=== PATIENT | female | born 2000 | race Hispanic/Latino ===

== ENCOUNTER 2022-01-26 18:31 | Emergency (ER) | payer SELFPAY ==
[2022-01-26] MEDS ORDERED: ONDANSETRON 4 MG/2 ML VIAL ONE (19:14)
[2022-01-26] MEDS ORDERED: MORPHINE 4 MG/ML SYR ONE (19:14)
[2022-01-26] MEDS ORDERED: FAMOTIDINE 20 MG/2 ML VIAL IV ONE (19:14)
[2022-01-26 19:16] LABS: Absolute Lymphocytes (CBC) 1.8 K/uL (0.7-4.9); Hematocrit 39.3 % (36.0-45.0); Lymphocytes % 12.2 % (15.3-44.8); MCV 82.3 fL (80-100); MPV 9.2 fL (7.6-11.3); RBC Red Blood Cell Count 4.77 M/uL (3.86-4.86)
[2022-01-26 19:34] LABS: Albumin 3.4 g/dL (3.4-5.0); Bilirubin Total 0.5 mg/dL (0.2-1.0); Potassium 3.3 mmol/L (3.5-5.1); Protein, Total 7.9 g/dL (6.4-8.2); Troponin High Sensitivity 3.4 pg/mL (<58.9)
--- NOTE | 2022-01-27 00:34 | EDPHYS ---
Physician Documentation [facility] Name: Annalisa Gil Age: 21 yrs Sex: Female : 2000 Arrival Date: 01/26/2022 Time: 18:32 Bed 20 Private MD: ED Physician Adan Cordoba HPI: 01/26 18:57 This 21 yrs old Female presents to ER via Wheelchair with complaints of pm1 Abdominal pain. 18:57 The patient presents with abdominal pain in the epigastric area, in the right upper pm1 quadrant. Onset: The symptoms/episode began/occurred just prior to arrival. The symptoms do not radiate. Associated signs and symptoms: Pertinent positives: shortness of breath, Pertinent negatives: nausea, vomiting, and diarrhea, chest pain, dysuria, fever. The symptoms are described as sharp. Modifying factors: The symptoms are alleviated by nothing, the symptoms are aggravated by nothing. Severity of pain: in the emergency department the pain is unchanged. The patient has not experienced similar symptoms in the past. The patient has not recently seen a physician. Patient with vaginal delivery on 01/13/2022 without any complications. 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 - Social history:: Smoking status: Patient denies any tobacco usage or history of. ROS: 18:57 Constitutional: Negative for fever, chills, and weight loss, Cardiovascular: Negative pm1 for chest pain, palpitations, and edema. 18:57 Back: Negative for injury and pain, : Negative for injury, bleeding, discharge, and swelling, MS/Extremity: Negative for injury and deformity, Skin: Negative for injury, rash, and discoloration, Neuro: Negative for headache, weakness, numbness, tingling, and seizure. 18:57 Respiratory: Positive for shortness of breath. 18:57 Abdomen/GI: Positive for abdominal pain, of the epigastric area and right upper quadrant, Negative for nausea, vomiting, and diarrhea. 18:57 All other systems are negative. Exam: 18:57 Constitutional: This is a well developed, well nourished patient who is awake, alert, pm1 and in no acute distress. Head/Face: Normocephalic, atraumatic. 18:57 Back: No spinal tenderness. No costovertebral tenderness. Full range of motion. Skin: Warm, dry with normal turgor. Normal color with no rashes, no lesions, and no evidence of cellulitis. MS/ Extremity: Pulses equal, no cyanosis. Neurovascular intact. Full, normal range of motion. 18:57 Eyes: Exam is negative for acute changes, Periorbital structures: no acute changes, Extraocular movements: no acute changes, Conjunctiva: no acute changes, no injection. 18:57 Cardiovascular: Exam negative for acute changes, Rate: normal, Rhythm: regular, Pulses: no pulse deficits are appreciated, Heart sounds: normal, normal S1and S2, Edema: is not appreciated. 18:57 Respiratory: Exam negative for acute changes, respiratory distress, shortness of breath, Breath sounds: are clear throughout. 18:57 Abdomen/GI: Inspection: abdomen appears normal, Palpation: soft, in all quadrants, mild abdominal tenderness, in the right upper quadrant. 18:57 Neuro: Exam negative for acute changes, Orientation: is normal, Mentation: is normal, Motor: is normal, moves all fours. 01/27 00:59 Abdomen/GI: Inspection: abdomen appears normal, Palpation: abdomen is soft and pm1 non-tender, in all quadrants. Vital Signs: 01/26 18:41 BP 109 / 61; Pulse 84; Resp 18 S; Temp 97.9(TE); Pulse Ox 98% on R/A; aa5 19:40 BP 105 / 54; Pulse 72; Resp 17 S; Pulse Ox 100% on R/A; as6 20:39 BP 97 / 57; Pulse 67; Resp 16; Pulse Ox 99% on R/A; kr3 21:57 BP 113 / 68; Pulse 72; Resp 13 S; Pulse Ox 100% on R/A; as6 22:59 BP 106 / 77; Pulse 63; Resp 16 S; Pulse Ox 100% on R/A; as6 01/27 01:00 BP 112 / 63; Pulse 72; Resp 18 S; Pulse Ox 100% on R/A; as6 MDM: 01/26 18:42 Patient medically screened. pm1 21:08 Data reviewed: vital signs. Data interpreted: Pulse oximetry: on room air is 99 %. pm1 Interpretation: normal. 21:08 ED course: Pending US results. pm1 22:11 ED course: US has not been performed and operating theatre technician has not been reachable to pm1 pages to come into to perform the test. Will order CT. 01/27 00:32 Counseling: I had a detailed discussion with the patient and/or guardian regarding: the pm1 historical points, exam findings, and any diagnostic results supporting the discharge/admit diagnosis, lab results, radiology results, the need for outpatient follow up, a family practitioner, to return to the emergency department if symptoms worsen or persist or if there are any questions or concerns that arise at home. 00:59 ED course: Patient understands the safety with the medications pepcid and pm1 bentyl and she wants to have them as prescriptions just in case she needs them. She will pump and dump for at least 24 hours after taking a medication . 01/26 18:48 Order name: CBC with Diff; Complete Time: 19:18 pm1 01/26 18:48 Order name: CMP; Complete Time: 19:39 pm1 01/26 18:48 Order name: Lipase; Complete Time: 19:39 pm1 01/26 18:48 Order name: Troponin High Sensitivity; Complete Time: 19:39 pm1 01/26 22:04 Order name: CT Abd/Pelvis - IV Contrast Only pm1 01/26 18:48 Order name: IV Saline Lock; Complete Time: 19:16 pm1 01/26 18:48 Order name: Labs collected and sent; Complete Time: 19:16 pm1 01/26 18:48 Order name: EKG; Complete Time: 18:48 pm1 01/26 18:48 Order name: EKG - Nurse/Tech; Complete Time: 19:30 pm1 EC/24 19:41 Rate is 76 beats/min. Rhythm is regular, Normal Sinus Rhythm with No ectopy. QRS [place] pm1 is Normal. OR interval is normal. QRS interval is normal. QT interval is normal. No Q waves. T waves are Normal. No ST changes noted. Clinical impression: Normal ECG. Administered Medications: 19:36 Drug: Pepcid (famotidine) 20 mg Route: IVP; Site: right antecubital; as6 01/27 01:00 Follow up: Response: No adverse reaction as6 01/26 19:36 Drug: Zofran (Ondansetron) 4 mg Route: IVP; Site: right antecubital; as6 01/27 01:00 Follow up: Response: No adverse reaction as6 01/26 19:36 Drug: morphine 4 mg Route: IVP; Infused Over: 4 mins; Site: right antecubital; as6 01/27 01:00 Follow up: Response: No adverse reaction as6 Disposition Summary: 01/27/22 00:33 Discharge Ordered Location: Home pm1 Problem: new pm1 Symptoms: have improved pm1 Condition: Stable pm1 Diagnosis - Abdominal pain, unspecified pm1 Followup: pm1 - With: Emergency Department - When: As needed - Reason: Worsening of condition Followup: pm1 - With: Private Physician - When: 2 - 3 days - Reason: Recheck today's complaints, Continuance of care, Re-evaluation by your physician Discharge Instructions: - Discharge Summary Sheet pm1 - Abdominal Pain, Adult pm1 Forms: - Medication Reconciliation Form pm1 - Thank You Letter pm1 - Antibiotic Education pm1 - Prescription Opioid Use pm1 Prescriptions: - Pepcid 20 mg Oral Tablet - take 1 tablet by ORAL route every 12 hours for 10 days; 20 tablet; Refills: 0, pm1 Product Selection Permitted - dicyclomine 20 mg Oral Tablet - take 1 tablet by ORAL route every 6 hours As needed; 20 tablet; Refills: 0, pm1 Product Selection Permitted Addendum: 01/28/2022 15:19 Co-signature as Attending Physician, Adan MARADIAGA was immediately available on-site m s3 in the Emergency Department for consultation in the care of the patient. Signatures: Dispatcher [employer] EDMS Gloria Cook, RN RN aa5 Kervin White NP RESPIRATORY THERAPY AIDE pm1 Adan Cordoba DO DO ms3 Leland Figueredo RN RN as6 Corrections: (The following items were deleted from the chart) 01/26 18:41 18:41 Home Meds: None; aa5 aa5 18:41 18:41 PMHx: None; aa5 aa5
--- NOTE | 2022-01-27 00:34 | ER ---
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 Pt reports she had aa5 vaginal delivery 01/13/22 without complications. Pt denies nausea/vomiting/diarrhea, denies fever. Pt c/o slight SOB. Coronavirus screen: shortness of breath. Ebola Screen: Patient denies travel to an Ebola-affected area in the 21 days before illness onset. Initial Sepsis Screen: Does the patient meet any 2 criteria? No. Patient's initial sepsis screen is negative. Does the patient have a suspected source of infection? No. Patient's initial sepsis screen is negative. Risk Assessment: Do you want to hurt yourself or someone else? Patient reports no desire to harm self or others. Onset of symptoms was January 26, 2022. 18:38 Method Of Arrival: Wheelchair aa5 18:38 Acuity: SARTHAK 3 aa5 Triage Assessment: 18:45 Pain: Complains of pain in abdomen. as6 20:27 General: Appears in no apparent distress. uncomfortable, Behavior is calm, cooperative, as6 appropriate for age. 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 - Social history:: Smoking status: Patient denies any tobacco usage or history of. Screenin:27 Abuse screen: Denies threats or abuse. Nutritional screening: No deficits noted. as6 Tuberculosis screening: No symptoms or risk factors identified. Fall Risk IV access (20 points). Total Hodge Fall Scale indicates No Risk (0-24 pts). Assessment: 18:45 Reassessment: see triage note. as6 19:45 Reassessment: No changes from previously documented assessment. Patient and/or family as6 updated on plan of care and expected duration. Pain level reassessed. Patient is alert, oriented x 3, equal unlabored respirations, skin warm/dry/pink. 20:26 Reassessment: No changes from previously documented assessment. Patient and/or family as6 updated on plan of care and expected duration. Pain level reassessed. Patient is alert, oriented x 3, equal unlabored respirations, skin warm/dry/pink. 21:57 General: pt states pain has improved . as6 22:59 General: Appears in no apparent distress. as6 01/27 00:58 General: manager dental used for discharge teaching. pt verbalizes understanding for as6 educations . Vital Signs: 01/26 18:41 BP 109 / 61; Pulse 84; Resp 18 S; Temp 97.9(TE); Pulse Ox 98% on R/A; aa5 19:40 BP 105 / 54; Pulse 72; Resp 17 S; Pulse Ox 100% on R/A; as6 20:39 BP 97 / 57; Pulse 67; Resp 16; Pulse Ox 99% on R/A; kr3 21:57 BP 113 / 68; Pulse 72; Resp 13 S; Pulse Ox 100% on R/A; as6 22:59 BP 106 / 77; Pulse 63; Resp 16 S; Pulse Ox 100% on R/A; as6 01/27 01:00 BP 112 / 63; Pulse 72; Resp 18 S; Pulse Ox 100% on R/A; as6 ED Course: 01/26 18:32 Patient arrived in ED. ja2 18:37 Arm band placed on Patient placed in an exam room, on a stretcher. ss 18:40 Triage completed. aa5 18:42 Kervin White NP is PHCP. pm1 18:42 Adan Cordoba DO is Attending Physician. pm1 18:45 Bed in low position. Call light in reach. Side rails up X 1. as6 18:50 Winter Taylor, MARVIN is Primary Nurse. kr3 19:30 Inserted saline lock: 22 gauge in right antecubital area, using aseptic technique. as6 Blood collected. Done by Khalida WONG. 20:[address]ed. as6 23:18 CT Abd/Pelvis - IV Contrast Only In Process Unspecified. EDMS 01/27 00:59 No provider procedures requiring assistance completed. IV discontinued, intact, as6 bleeding controlled, No redness/swelling at site. Pressure dressing applied. Administered Medications: 01/26 19:36 Drug: Pepcid (famotidine) 20 mg Route: IVP; Site: right antecubital; as6 01/27 01:00 Follow up: Response: No adverse reaction as6 01/26 19:36 Drug: Zofran (Ondansetron) 4 mg Route: IVP; Site: right antecubital; as6 01/27 01:00 Follow up: Response: No adverse reaction as6 01/26 19:36 Drug: morphine 4 mg Route: IVP; Infused Over: 4 mins; Site: right antecubital; as6 01/27 01:00 Follow up: Response: No adverse reaction as6 Medication: 00:59 VIS not applicable for this client. as6 Outcome: 00:33 Discharge ordered by MD. pm1 00:59 Discharged to home ambulatory, with significant other. as6 00:59 Condition: stable 01:06 Discharge instructions given to patient, Instructed on discharge instructions, follow as6 up and referral plans. medication usage, Demonstrated understanding of instructions, follow-up care, medications, Prescriptions given X 2. 01:07 Patient left the ED. as6 Signatures: Dispatcher [employer] [facility] Gloria Cook RN RN aa5 Susanna Larsen RN RN ss Kervin White, NELLY INFORMATION RECEPTIONIST pm1 Cyndee Crump2 Leland Figueredo RN RN as6 Winter Taylor RN RN kr3 Corrections: (The following items were deleted from the chart) 01/26 18:41 18:41 Home Meds: None; aa5 aa5 18:41 18:41 PMHx: None; aa5 aa5
[2022-01-27 01:30] VITALS: TEMP 97.9
[2022-01-27 01:33] VITALS: O2SAT 100
[2022-01-27 01:36] VITALS: BP 112/63
--- NOTE | 2022-01-27 16:22 | RAD REPORT ---
EXAM DESCRIPTION: CT - Abdomen Pelvis W Contrast - 01/27/2022 12:40 am CLINICAL HISTORY: 21 years Female RUQ pain TECHNIQUE: Contiguous axial images obtained through the abdomen and pelvis following intravenous con trast administration. Coronal and sagittal reformatted images provided. This CT exam was performed according to our departmental dose-optimization program, which includes on e or more of the following dose reduction techniques: automated exposure control, adjustment of the m A and/or kV according to patient size, and/or use of iterative reconstruction technique. COMPARISON: No prior exams provided for comparison. FINDINGS: Minimal bibasilar atelectasis. The liver, biliary tree, gallbladder, pancreas, spleen, adrenal glands, kidneys, urinary bladder, and osseous structures are normal. There is trace gas in the endometrial canal. No adnexal mass. There is no bowel inflammation, obstruction, free intraperitoneal air, or ascites. The appendix is no rmal. IMPRESSION: No acute abdominal or pelvic abnormalities. Electronically signed by: Niki Salazar MD 01/26/2022 11:36 PM WATER METER READER Due to temporary technical issues with the PACS/Fluency reporting system, reports are being signed by the in house radiologists without review as a courtesy to insure prompt reporting. The interpreting radiologist is fully responsible for the content of the report.
--- NOTE | 2022-01-30 12:59 | EKG ---
Test Date: 2022-01-26 Test Time: 19:38:03 Circulation Man: MEASUREMENT RESULTS: Intervals: Rate: 76 CT: 162 QRSD: 78 QT: 382 QTc: 429 [place]: P: 57 CT: 162 QRS: 68 T: 56 INTERPRETIVE STATEMENTS: Normal sinus rhythm Normal ECG Compared to ECG 01/26/2022 19:22:50 ST (T wave) deviation no longer present Myocardial infarct finding no longer present Electronically Signed On 01-30-22 12:52:52 PHOTOGRAPH FINISHER by Casper Olson
--- NOTE | 2022-01-30 12:59 | EKG ---
Test Date: 2022-01-26 Test Time: 19:22:50 Screener And Blender Operator: MARLEY MEASUREMENT RESULTS: Intervals: Rate: 72 VT: 156 QRSD: 74 QT: 366 QTc: 400 [place]: P: 50 VT: 156 QRS: 71 T: 30 INTERPRETIVE STATEMENTS: Age and gender specific ECG analysis Normal sinus rhythm ST elevation, consider inferior injury or acute infarct ACUTE MS Abnormal ECG No previous ECG available for comparison Electronically Signed On 01-30-22 12:53:09 TRIM MACHINE ADJUSTER by Casper Olson
== END 2022-01-27 01:07 | disposition home or self-care (01) ==
LOC: ER 18:31
DX: R10.11 Right upper quadrant pain (principal)
CPT/HCPCS: 36415; 74177; 80053; 83690; 84484; 85025; 93005; 96374; 96375; 99284; J2405; Q9967